=== PATIENT | male | born 1985 | race Caucasian/White ===

== ENCOUNTER → 2017-08-26 | Outpatient (CLI) | payer OTHER ==
--- NOTE | 2017-08-27 05:27 | PAP/PSG TECHNICIAN REPORT ---
[facility] Medical Social Worker Polysomnogram Report Study name: None Report date: 08/27/2017 Study date: 08/26/2017 Referring Physician: SHARRON JOLLEY Name: FÁTIMA HOLCOMB Interpreting Physician: Garrick Shields M.D. Date of : 1985 Medical Social Worker: Elia Sykes RPSGT. Sex: Male Age: 32 StudyType: PSG Weight: 280 lbs Height: 32 years, Height 6' 3" BMI: 34.99 Medications: PANTOPRAZOLE 40 MG, HCTZ/LISINOPRIL 12.5/20 MG, SERTRALINE HCL 100 MG, METOPROLOL 50 MG, ATORVASTATIN 80 MG, RANITIDINE 150 MG, TRAZADONE 50 MG Patient History PATIENT HAS HISTORY OF FATIGUE AND EXCESSIVE DAYTIME SLEEPINESS. ALSO HAS HISTORY OF SNORING AND GASPING FOR AIR. HE IS HERE TODAY FOR AN EVALUATION FOR SILAS. ESS = 11 RM 7 Parameters Monitored NPSG: E1-M2, E2-M1, Fp1-M2, Fp2-M1, F3-M2, F4-M2, F4-M1, C3-M2, C4-M2, C4-M1, O1-M2, O2-M2, O2-M1, T3-M2, T4-M1, P3-M2, P4-M1, CHIN1, CHIN2, HR, EKG, Legs, PFLOW, SNOR, FLOW, CFLOW, Tidal Volume, THOR, ABDO, SpO2, PLTH, CPRESS, ETCO2 Wave, ETCO2, pH Sleep Architecture Sleep Stages Time at Lights Off 9:21:41 PM STAGES Time (min.) TST (%) Time at Lights On 4:59:41 AM Wake 45.0 -- Total Recording Time (TRT) 458.50 min. N1 10.0 2 Total Sleep Period (TSP) 421.0 min. N2 251.0 61 Total Sleep Time (TST) 413.0min. N3 78.5 19 Awake Time 45.5 min. REM 73.5 18 Wake after Sleep Onset 8.0 min. Sleep Efficiency (SE) 90 % Sleep Onset Latency (KERWIN) 37.0 min. Number of Stage 1 Shifts None Awakenings 12 Stage Changes 59 Number of REM periods 6 REM 73.5 18 REM Latency 144.0 min. NREM 339.5 82 Body Position Analysis Supine Right Left Side Prone Vertical Total Sleep Time (min.) 458.0 0.0 0.0 0.00 0.0 0.0 Total Sleep Time (%) 100% 0% 0% 0 0% N/A% Total Sleep Time REM (min.) 73.5 0.0 0.0 None 0.0 0.0 Total Sleep Time NREM (min.) 339.5 0.0 0.0 None 0.0 0.0 Intermittent Wake (min.) 45.0 0.0 0.0 None 0.0 0.0 Total Sleep Period (%) 100% None None None None None Arousals Myoclonus (PLM) * Events Count Index Events Count Index Spontaneous 17 2 Events Awake (PLMW) 38 50.7 Respiratory 11 1.6 Events Asleep w/ Arousal (PLMA) 9 1.3 PLM 6 1 Events Asleep w/o Arousal (PLMS) 70 10.2 Snoring 6 1 Total Asleep 79 11.5 Total 40 6 Total 117 15 Respiratory Analysis * CA OA MA CH H RERA Total Count 2 1 0 0 133 1 136 Index 0.3 0.1 0.0 0 19.3 0 19.9 Mean Duration 18.0 10.6 0.0 0.00 21.0 19.6 20.9 Longest Duration 18.1 10.6 0.0 0.00 0.0 19.6 38.4 Respiratory Event Summary Total Supine ~Supine Right Left Prone REM NREM Apneas Count 3 3 N/A N/A N/A N/A 0 3 Index 0.4 0 N/A N/A N/A N/A 0 1 Hypopneas (4% Desat) Count 133 133 N/A N/A N/A N/A 49 84 Index 19.3 19.3 N/A N/A N/A N/A 40.0 14.8 Apneas & All Hypopneas Count 136 136 N/A N/A N/A N/A 49 87 Index 19.8 20 N/A N/A N/A N/A 40.0 15.4 Respiratory Events (Foreclosure Specialist+All Hyp+RERA) Count 136 137 N/A N/A N/A N/A 49 87 Index 19.9 20 N/A N/A N/A N/A 40.8 15.4 Respiratory Related Arousal Count 11 137 N/A N/A N/A N/A 3 8 Index 1.6 2 N/A N/A N/A N/A 2 1 Snoring Analysis Supine Right Left Prone REM NREM Total Snore duration 77.5 min Snores count 3,680 N/A N/A N/A 159 3,521 3,680 Snore mean duration 1.3 Sec Snores index 535 N/A N/A N/A 129.8 622.3 534.6 TST with snoring (%) 18.8% Desaturation Event Summary: Minimum %SpO2 Event Count Mean/Min/Max Duration(sec.) Desaturation Index % Time In Bed > 90 131 30.8 / 7.5 / 67.4 24.4 70.3 86 - 90 36 24.9 / 9.3 / 54.5 16.4 28.8 81 - 85 0 N/A 0.0 0.9 76 - 80 0 N/A 0.0 0.0 71 - 75 0 N/A 0.0 0.0 66 - 70 0 N/A 0.0 0.0 61 - 65 0 N/A 0.0 0.0 56 - 60 0 N/A 0.0 0.0 51 - 55 0 N/A 0.0 0.0 < 50 0 N/A 0.0 0.0 Total REM NREM Awake <50% 0.0 min. 0.0 min. 0.0 min. 0.0 min. 51 - 60% 0.0 min. 0.0 min. 0.0 min. 0.0 min. 61 - 70% 0.0 min. 0.0 min. 0.0 min. 0.0 min. 71 - 80% 0.2 min. 0.0 min. 0.2 min. 0.0 min. 81 - 90% 135.9 min. 25.4 min. 108.9 min. 1.6 min. 91 - 100% 321.9 min. 48.1 min. 230.4 min. 43.4 min. Average 91 91 91 93 Minimum SpO2 79 84 79 87 Desaturation Event Index 18.6 40.8 15.6 5.3 # Desat. Events below 89% 88 25 61 2 Time(%) with Saturation below 89% 6.3 1.5 4.7 0.1 Time(min.) with Saturation below 89% 28.9 6.9 21.6 0.4 Time (mins) REM (mins) NREM (mins) % of TST SpO2 Below 90% 130 48 N82 16.1 SpO2 Below 88% 44 0 0 3 Heart Rate Analysis Min (bpm) Max (bpm) Average (bpm) Awake 46 83 70 NREM 44 78 61 REM 43 74 59 Overall 43 78 61 Supplemental O2 Values Minimum O2 level: None Value Start Time End Time Medical Social Worker Comments Mr. Holcomb slept in the supine position. No cardiac arrhythmia noted. Leg movements noted. No bruxism noted. Snoring was noted and scored as a 3 on a scale of 1 through 5. (0=no snoring, 5=snoring loud enough to be heard through a closed door or down the matthew way) Mr. Holcomb awoke to use the restroom 0 times during the night. Mr. Holcomb stated I did not sleep as well as I do when I am in my own bed. The final report will be interpreted and signed by a sleep physician. The completed physician report will then be placed in the patient medical record. Therapy (cm H2O) 0 TIB (min.) 458.0 TST (min.) 413.0 Sleep Onset (min.) 37.0 REM Onset From Sleep (min.) 144.0 Sleep Efficiency % 90 Wakefulness (%) 10 Wakefulness (min.) 45.5 NREM 1 (%) 2 NREM 1 (min.) 10.0 NREM 2 (%) 61 NREM 2 (min.) 251.0 NREM 3 (%) 19 NREM 3 (min.) 78.5 REM (%) 18 REM (min.) 73.5 # Arousals 40 Arousal Index 6 # Snore 3,680 Snore Index 534.6 AHI 19.8 AHI Supine 20 AHI Non-Supine N/A NREM AHI 15.4 REM AHI 40.0 RDI 19.9 # Obstructive Apnea 1 # Central Apnea 2 # Mixed Apnea 0 # Hypopneas 133 RERAs 1 Total Respiratory Events 139 Time Below SpO2 89% (min.) 28.5 Mean NREM SpO2 (%) 91 Mean REM SpO2 (%) 91 Mean Sleep SpO2 (%) 91 Min NREM SpO2 (%) 79 Min REM SpO2 (%) 84 Position Supine (min.) 458.0 Position Non-supine (min.) 0.0 LM Index Sleep 11.5 LM Index NREM 7.4 LM Index REM 30.2 Mean Heart Rate (bpm) 61 Min Heart Rate (bpm) 43
--- NOTE | 2017-08-28 12:35 | POLYSOMNOGRAPH REPORT ---
CLINICAL DATA: 32-year-old male with BMI of 35 referred by SHARRON Pruitt, with a history of fatigue, excessive daytime sleepiness, loud snoring, and gasping for air at night. His Warren sleeping score was elevated at 11/24. SLEEP ARCHITECTURE: Total recording time was 458.5 minutes. Total sleep period was 420 minutes. Total sleep time was 413 minutes divided between 339.5 minutes of non-REM sleep and 73.5 minutes of REM sleep. Sleep onset latency was slightly delayed at 37 minutes. REM latency was slightly delayed at 144 minutes. Sleep efficiency was 90%. Wake after sleep onset was 8 minutes. Sleep consisted of stage N1 2%, state N2 61%, stage N3 19%, and REM 18%. AROUSAL DATA: 40 arousals recorded for an index of 6 per hour. PLM DATA: 79 limb movements during sleep were noted for an index of 11.5 per hour with arousal index of 1.3 per hour. RESPIRATORY DATA: Moderate sleep apnea was diagnosed. The AHI was 19.8. There were 2 central apneic episodes and 1 obstructive apneic episode. The longest duration of apnea was 18.1 seconds. There were 133 hypopneic episodes with the mean duration of 21 seconds. OXIMETRY DATA: Nocturnal hypoxemia was seen. Oxygen julio was 84% during REM. The mean saturation was 91%. Time below 88% was 44 minutes. EKG: Heart ranged from 44-78 beats per minute. No arrhythmias were noted. RESIDENTIAL SUPPORT SPECIALIST'S COMMENTS: The patient slept supine. Snoring was moderate, rated 3 on a scale of 1-5. IMPRESSION: Moderate sleep apnea/hypopnea with an AHI of 19.8 with nocturnal hypoxemia. RECOMMENDATIONS: The patient may benefit from a repeat sleep study with CPAP, use of auto-CPAP, or use of an oral appliance. Clinical correlation is needed. GILBERT
== END | disposition home or self-care (01) ==
LOC: C.NEUR 20:00
PROVIDERS: ATTEND Nurse Practitioner Adult Health
DX: G47.30 Sleep apnea, unspecified (principal)

== ENCOUNTER → 2017-11-19 | Outpatient (CLI) | payer OTHER ==
--- NOTE | 2017-11-20 06:14 | PAP/PSG TECHNICIAN REPORT ---
[facility] Horseradish Grinder Polysomnogram Report Study name: None Report date: 11/20/2017 Study date: 11/19/2017 Referring Physician: YUMIKO MCDERMOTT Name: FÁTIMA HOLCOMB Interpreting Physician: Garrick Shields M.D. Date of : 1985 Horseradish Grinder: PERLITA Cowan. Sex: Male Age: 32 Study Type: PSG PAP Weight: 280 lbs Height: 32 years, Height 6' 3" BMI: 34.99 Medications: PANTOPRAZOLE 40 MG, HCTZ/LISINOPRIL 12.5/20 MG, SERTRALINE HCL 100 MG, METOPROLOL 50 MG, ATORVASTATIN 80 MG, RANITIDINE 150 MG, TRAZADONE 50 MG Patient History 32 yr-old male here for a new CPAP treatment study. He was found to be positive for SILAS with an AHI of 19.8. His diagnostic study was on 08/26/17. He chose an AirFit F10 full face mask size medium from [employer]. The test was started on room air and 4 CMH2O. ETCO2 testing was not utilized during this study. Room 3 Parameters Monitored NPSG: E1-M2, E2-M1, Fp1-M2, Fp2-M1, F3-M2, F4-M2, F4-M1, C3-M2, C4-M2, C4-M1, O1-M2, O2-M2, O2-M1, T3-M2, T4-M1, P3-M2, P4-M1, CHIN1, CHIN2, HR, EKG, Legs, PFLOW, SNOR, FLOW, CFLOW, Tidal Volume, THOR, ABDO, SpO2, PLTH, CPRESS, ETCO2 Wave, ETCO2, pH Sleep Architecture Sleep Stages Time at Lights Off 10:16:40 PM STAGES Time (min.) TST (%) Time at Lights On 5:36:40 AM Wake 38.5 -- Total Recording Time (TRT) 440.00 min. N1 48.5 12 Total Sleep Period (TSP) 418.0 min. N2 291.0 72 Total Sleep Time (TST) 401.5min. N3 26.0 6 Awake Time 38.5 min. REM 36.0 9 Wake after Sleep Onset 16.5 min. Sleep Efficiency (SE) 91 % Sleep Onset Latency (KERWIN) 22.0 min. Number of Stage 1 Shifts None Awakenings 21 Stage Changes 118 Number of REM periods 2 REM 36.0 9 REM Latency 283.5 min. NREM 365.5 91 Body Position Analysis Supine Right Left Side Prone Vertical Total Sleep Time (min.) 440.0 0.0 0.0 0.00 0.0 0.0 Total Sleep Time (%) 100% 0% 0% 0 0% N/A% Total Sleep Time REM (min.) 36.0 0.0 0.0 None 0.0 0.0 Total Sleep Time NREM (min.) 365.5 0.0 0.0 None 0.0 0.0 Intermittent Wake (min.) 38.5 0.0 0.0 None 0.0 0.0 Total Sleep Period (%) 100% None None None None None Arousals Myoclonus (PLM) * Events Count Index Events Count Index Spontaneous 66 10 Events Awake (PLMW) 54 84.2 Respiratory 32 5.5 Events Asleep w/ Arousal (PLMA) 17 2.5 PLM 17 3 Events Asleep w/o Arousal (PLMS) 76 11.4 Snoring 4 1 Total Asleep 93 13.9 Total 119 18 Total 147 20 Respiratory Analysis * CA OA MA CH H RERA Total Count 12 2 0 0 50 3 64 Index 1.8 0.3 0.0 0 7.5 0 10.0 Mean Duration 15.5 16.8 0.0 0.00 16.6 18.2 16.5 Longest Duration 25.6 16.8 0.0 0.00 0.0 18.5 25.6 Respiratory Event Summary Total Supine ~Supine Right Left Prone REM NREM Apneas Count 14 14 N/A N/A N/A N/A 0 14 Index 2.1 2 N/A N/A N/A N/A 0 2 Hypopneas (4% Desat) Count 50 50 N/A N/A N/A N/A 2 48 Index 7.5 7.5 N/A N/A N/A N/A 3.3 7.9 Apneas & All Hypopneas Count 64 64 N/A N/A N/A N/A 2 62 Index 9.6 10 N/A N/A N/A N/A 3.3 10.2 Respiratory Events (Lead Database Administrator+All Hyp+RERA) Count 64 67 N/A N/A N/A N/A 2 62 Index 10.0 10 N/A N/A N/A N/A 5.0 10.5 Respiratory Related Arousal Count 32 67 N/A N/A N/A N/A 1 36 Index 5.5 6 N/A N/A N/A N/A 2 6 Snoring Analysis Supine Right Left Prone REM NREM Total Snore duration 2.9 min Snores count 127 N/A N/A N/A 6 121 127 Snore mean duration 1.4 Sec Snores index 19 N/A N/A N/A 10.0 19.9 19.0 TST with snoring (%) 0.7% Desaturation Event Summary: Minimum %SpO2 Event Count Mean/Min/Max Duration(sec.) Desaturation Index % Time In Bed > 90 127 16.2 / 5.0 / 49.5 18.5 93.6 86 - 90 4 7.3 / 5.0 / 10.0 8.9 6.1 81 - 85 0 N/A 0.0 0.3 76 - 80 0 N/A 0.0 0.0 71 - 75 0 N/A 0.0 0.0 66 - 70 0 N/A 0.0 0.0 61 - 65 0 N/A 0.0 0.0 56 - 60 0 N/A 0.0 0.0 51 - 55 0 N/A 0.0 0.0 < 50 0 N/A 0.0 0.0 Total REM NREM Awake <50% 0.0 min. 0.0 min. 0.0 min. 0.0 min. 51 - 60% 0.0 min. 0.0 min. 0.0 min. 0.0 min. 61 - 70% 0.0 min. 0.0 min. 0.0 min. 0.0 min. 71 - 80% 0.0 min. 0.0 min. 0.0 min. 0.0 min. 81 - 90% 28.3 min. 0.2 min. 24.9 min. 3.2 min. 91 - 100% 411.5 min. 35.8 min. 340.6 min. 35.1 min. Average 93 93 92 93 Minimum SpO2 83 90 83 83 Desaturation Event Index 17.3 6.7 17.1 32.7 # Desat. Events below 89% 49 N/A 40 9 Time(%) with Saturation below 89% 1.5 0.0 1.3 0.3 Time(min.) with Saturation below 89% 6.8 0.0 5.5 1.3 Time (mins) REM (mins) NREM (mins) % of TST SpO2 Below 90% 87 1 N86 2.6 SpO2 Below 88% 12 0 0 1 Heart Rate Analysis Min (bpm) Max (bpm) Average (bpm) Awake 51 93 74 NREM 46 90 61 REM 51 83 59 Overall 46 90 61 Supplemental O2 Values Minimum O2 level: None Value Start Time End Time Horseradish Grinder Comments Mr. Holcomb slept only in the supine position. No cardiac arrhythmias or PLMs noted. No bruxism noted. CPAP was initiated at +4 CMH2O and up-titrated to a level of +9 CMH2O, Cflex 2 which nearly eliminated all respiratory events and snoring. An AirFit F10 full face mask size medium from [employer] was used during titration He did not wake up to use the restroom during the night. Mr. Holcomb stated that he slept a little better than usual. The final report will be interpreted and signed by a sleep physician. The completed physician report will then be placed in the patient medical record. CPAP REPORT Therapy Detail Time / Page # Comment CPAP 4 cm H2O Full Face Mask Flex Pressure Relief Humidifier on 10:13:59 PM / pg. 38 CPAP 5 cm H2O Full Face Mask Flex Pressure Relief Humidifier on 11:00:20 PM / pg. 131 INCREASED FOR HYPOPNEAS CPAP 7 cm H2O Full Face Mask Flex Pressure Relief Humidifier on 11:31:55 PM / pg. 194 INCREASED FOR HYPOPNEAS CPAP 9 cm H2O Full Face Mask Flex Pressure Relief Humidifier on 2:05:02 AM / pg. 500 INCREASED FOR APNEAS AND HYPOPNEAS Therapy Event: Therapy (cm H20) 4 5 7 9 Total Time at Pressure (min.) 43.7 31.6 153.1 211.6 TST at Pressure (min.) 19.2 23.6 148.6 210.1 # Periods 1 1 1 1 Sleep Onset (min.) 22.0 0.0 0.0 0.0 REM Onset (min.) N/A N/A N/A 77.1 Sleep Efficiency % 43 74 97 99 Wakefulness (%) 56.1 25.3 2.9 0.7 Wakefulness (min.) 24.5 8.0 4.5 1.5 NREM 1 (%) 19.8 50.9 10.5 3.6 NREM 1 (min.) 8.7 16.1 16.1 7.6 NREM 2 (%) 24.0 23.7 69.6 78.7 NREM 2 (min.) 10.5 7.5 106.5 166.5 NREM 3 (%) 0.0 0.0 17.0 0.0 NREM 3 (min.) 0.0 0.0 26.0 0.0 REM (%) 0.0 0.0 0.0 17.0 REM (min.) 0.0 0.0 0.0 36.0 # Arousals 27 32 42 18 Arousal Index 84.5 81.4 17.0 5.1 # Snore 5 5 86 31 Snore Index 15.7 12.7 34.7 8.9 AHI 31.3 53.4 11.7 1.1 AHI Supine 31.3 53.4 11.7 1.1 AHI Non-Supine N/A N/A N/A N/A NREM AHI 31.3 53.4 11.7 0.7 REM AHI N/A N/A N/A 3.3 RDI 31.3 53.4 12.5 1.4 # Obstructive 0 0 2 0 # Central Ap 0 6 5 1 # Mixed 0 0 0 0 # Hypopneas 10 15 22 3 RERAS 0 0 2 1 Total Respiratory Events 10 21 31 5 Time Below SpO2 89.00% (min.) 0.3 1.7 3.4 0.1 Mean NREM SpO2 (%) 92 92 92 93 Mean REM SpO2 (%) N/A N/A N/A 93 Mean Sleep SpO2 (%) 92 92 92 93 Min NREM SpO2 (%) 86 83 83 87 Min REM SpO2 (%) N/A N/A N/A 90 Position Supine (min.) 19.2 23.6 148.6 210.1 Position Non-supine (min.) 0.0 0.0 0.0 0.0 LM Index Sleep 72.0 50.9 10.9 6.6 LM Index NREM 72.0 50.9 10.9 5.2 LM Index REM N/A N/A N/A 13.3 Mean Heart Rate (bpm) 76 70 60 59 Min Heart Rate (bpm) 58 58 46 48
--- NOTE | 2017-11-21 19:40 | POLYSOMNOGRAPH REPORT ---
CLINICAL DATA: A 32-year-old male with a BMI of 35 referred by Marianne Zamora for a CPAP study. He had moderate sleep apnea on a previous sleep study with an AHI of 19.8 in August 2017. He used an AirFit F10 full face mask size medium from [employer]. SLEEP ARCHITECTURE: Total sleep period was 418 minutes. Total sleep time was 401.5 minutes divided between 365.5 minutes of non-REM sleep and 36 minutes of REM sleep. Sleep onset latency was 22 minutes. REM latency was 282.5 minutes. Sleep efficiency was 91%. Awake after sleep onset was 16.5 minutes. Sleep consisted of stage N1 12%, stage N2 72%, stage N3 6%, and REM 9%. AROUSAL DATA: [place] nineteen arousals recorded for an index of 18 per hour. PLM DATA: Ninety three limb movements during sleep were noted for an index of 13.9 per hour with arousal index of 2.5 per hour. RESPIRATORY DATA: The AHI was 9.6. There were 12 central, and 2 obstructive apneic episodes. The longest duration of apnea was 25.6 seconds. There were hypopneic episodes with the mean duration of 16.6 seconds. OXIMETRY DATA: Mild nocturnal hypoxemia was seen. Oxygen julio was 83% during non-REM sleep. The mean saturation was 93%. Time below 88% was 12 minutes. ECHOCARDIOGRAM: Heart rates ranged from 46-90 beats per minute. No arrhythmias were noted. CLINICAL PROGRAM MANAGER'S COMMENTS AND TREATMENT SUMMARY: The patient slept supine. He was placed on CPAP and was titrated up to his final pressure setting of 9 cm of water pressure. At the final pressure sitting, he slept for 210 minutes with an AHI of 1.4. IMPRESSION: Moderate sleep apnea/hypopnea corrected with CPAP 9 cm of water pressure C-Flex 2, AirFit F10 full face mask size medium from [employer]. RECOMMENDATIONS: The patient should be started on the above noted treatment regimen and seen back in followup within 90 days to document efficacy and compliance.
== END | disposition home or self-care (01) ==
LOC: C.NEUR 21:00
PROVIDERS: ATTEND Family Medicine
DX: G47.33 Obstructive sleep apnea (adult) (pediatric) (principal)